=== PATIENT | female | born 1955 | race Two or more races ===

== ENCOUNTER 2018-12-27 15:18 | Emergency (ER) | payer MEDICAID, OTHER, SELFPAY ==
[~2018-12-27] VITALS: Ht 157.5 cm; Wt 57.7 kg
[2018-12-27 16:42] LABS: BASOPHILS # (AUTO) 0.03 x10^3/uL (0-0.1); BASOPHILS % (AUTO) 1 % (0-1); EOSINOPHILS # (AUTO) 0.05 x10^3/uL (0-0.4); EOSINOPHILS % (AUTO) 1 % (1-7); LYMPHOCYTES # (AUTO) 1.65 x10^3/uL (1-3.4); LYMPHOCYTES % (AUTO) 28 % (22-44); MD NO; MEAN CORPUSCULAR HEMOGLOBIN 27.4 pg (27.0-34.8); MEAN CORPUSCULAR HGB CONC 33.1 g/dL (32.4-35.8); MEAN CORPUSCULAR VOLUME 82.7 fL (80-100); MEAN PLATELET VOLUME 7.6 fL (7.4-10.4); MONOCYTES # (AUTO) 0.37 x10^3/uL (0.2-0.8); MONOCYTES % (AUTO) 6 % (2-9); NEUTROPHILS # (AUTO) 3.87 x10^3/uL (1.8-6.8); NEUTROPHILS % (AUTO) 65 % (42-75); PLATELET COUNT 286 x10^3/uL (130-400); RED BLOOD COUNT 4.69 x10^6/uL (3.82-5.3); RED CELL DISTRIBUTION WIDTH 16.7 % (9.6-15.2)
[2018-12-27 16:48] LABS: ALANINE AMINOTRANSFERASE 16 U/L (12-78); ANION GAP 7 mmol/L (5-15); CALCIUM 9.8 mg/dL (8.5-10.1); CHLORIDE 105 mmol/L (98-107); CREATININE 1.19 mg/dL (0.55-1.02)
[2018-12-27 16:50] LABS: ALKALINE PHOSPHATASE 148 U/L (45-117); BILIRUBIN,TOTAL 0.4 mg/dL (0.2-1.0)
--- NOTE | 2018-12-27 17:14 | NUR ---
BUSINESS ANALYST CONSULTANT: PT TO ROOM FROM [facility]
[2018-12-27 17:40] LABS: MICROSCOPIC INDICATED
[2018-12-27 17:50] LABS: CULTURE INDICATED? YES
--- NOTE | 2018-12-27 18:25 | NUR ---
Resting in [facility]. No needs.
[2018-12-27 19:02] VITALS: BP 131/75
--- NOTE | 2018-12-27 19:31 | NUR ---
Patient/Caregiver given discharge instructions and they have confirmed that they understand the instructions. Patient ambulatory with steady gait.
== END 2018-12-27 19:32 | disposition home or self-care (01) ==
LOC: ED 19:26
DX: K82.4 Cholesterolosis of gallbladder (principal); R10.11 Right upper quadrant pain; R10.13 Epigastric pain; R19.7 Diarrhea, unspecified; R11.2 Nausea with vomiting, unspecified; R10.9 Unspecified abdominal pain; E11.9 Type 2 diabetes mellitus without complications
CPT/HCPCS: 36415; 76700; 80053; 81001; 83690; 85025; 87086; 99284

== ENCOUNTER 2021-06-20 10:08 | Emergency (ER) | payer MEDICAID, OTHER ==
[~2021-06-20] VITALS: Ht 152.4 cm; Wt 65.6 kg
--- NOTE | 2021-06-20 10:31 | NUR ---
PT HAS CO COUGH, DELEON, BODY ACHES, STOMACHE PAIN W DIARRHEA FOR FEW DAYS. PT RECEIVED COVID KODI AND KODI VACCINE 4 MONTHS AGO. SWABBED FOR COVID BY PA. OROSCO. RA 99%. DENIES CP
[2021-06-20 11:07] LABS: BASOPHILS % (AUTO) 0 % (0-1); EOSINOPHILS % (AUTO) 0 % (1-7); LYMPHOCYTES % (AUTO) 24 % (22-44); MEAN CORPUSCULAR HEMOGLOBIN 27.5 pg (27.0-34.8); MEAN CORPUSCULAR HGB CONC 33.1 g/dL (32.4-35.8); MEAN PLATELET VOLUME 7.2 fL (7.4-10.4); MONOCYTES % (AUTO) 8 % (2-9); NEUTROPHILS % (AUTO) 68 % (42-75); PLATELET COUNT 186 x10^3/uL (130-400); RED BLOOD COUNT 3.61 x10^6/uL (3.82-5.3); RED CELL DISTRIBUTION WIDTH 16.7 % (9.6-15.2)
[2021-06-20 11:14] LABS: ALBUMIN 3.3 g/dL (3.4-5.0); ANION GAP 6 mmol/L (5-15); CALCIUM 9.1 mg/dL (8.5-10.1); CHLORIDE 107 mmol/L (98-107)
[2021-06-20] MEDS ORDERED: ALBUTEROL/IPRATROPIUM 2.5MG/0.5MG, 3 ML ONE (11:26)
[2021-06-20] MEDS ORDERED: AZITHROMYCIN 500 MG TABLET ONE (11:29)
[2021-06-20] MEDS ORDERED: ALBUTEROL SULFATE 2.5 MG/3 ML NPPB ONE (11:30)
[2021-06-20] MEDS ORDERED: AZITHROMYCIN 500 MG TABLET PO/NG ONE (11:30)
[2021-06-20] MEDS ORDERED: ALBUTEROL SULFATE 2.5 MG/3 ML ONE (11:30)
--- NOTE | 2021-06-20 11:40 | NUR ---
MEDICATED PER ORDERS.
[2021-06-20 12:53] VITALS: BP 130/61
== END 2021-06-20 12:55 | disposition home or self-care (01) ==
LOC: ED 11:22
DX: U07.1 COVID-19 (principal); J06.9 Acute upper respiratory infection, unspecified; E11.9 Type 2 diabetes mellitus without complications; R06.02 Shortness of breath
CPT/HCPCS: 36415; 71045; 80048; 82040; 85025; 93005; 94640; 99285; J7512; J7613; U0003; U0005